=== PATIENT | male | born 1955 | race Caucasian/White ===

== ENCOUNTER → 2018-04-23 | Outpatient (CLI) | payer OTHER ==
[~2018-04-23] MED LIST: ASPI1TAB PO; ATOR40TA75 PO; CLOP75TA2 PO; COMBAER6 INH; CYCL10TA PO; LISI-542 PO; MELO7.5T7 PO; METO50TA7 PO; OMEP20CA3 PO; PRED20TA PO; TRAM50TA2 PO
--- NOTE | 2018-04-23 21:32 | ECHO ---
DATE OF PROCEDURE: 04/23/2018 REFERRING PHYSICIAN: Dr. Jeffrey Hopkins INDICATION: Myocardial infarction. Height 165 cm, weight 84 kg. DIMENSIONS: IVS: 1.1 LV: 5.2 LVPW: 1.1 LA: 3.7 Aorta: 3.5 IVC: 1.5 Mitral E wave velocity: 58 A wave: 87 E prime septal: 5.3 E prime lateral: 5.9 FINDINGS: The study is of rather difficult technical quality with fair visualization. Left ventricle is of normal size and systolic function, I estimate left ventricular ejection fraction (LVEF) around 60-65%. No segmental wall motion abnormalities are noted. Right ventricle is also normal size and systolic function. Both atria appear grossly normal. Aortic, mitral and tricuspid valves appear normal. Pulmonic valve was not visualized. No pericardial effusion is noted. Inferior vena cava is normal size. Aortic root appears normal. Aortic arch and abdominal aorta were not well seen. Doppler interrogation of aortic valve reveals no stenosis and trace insufficiency. There is also trace mitral and trace tricuspid insufficiency. Calculated pulmonary artery pressure is within normal values. Mitral inflow pattern and tissue Doppler imaging of mitral annulus revealed grade 1 diastolic dysfunction. CONCLUSIONS: 1. Study is of fair technical quality. 2. Normal left ventricular (LV) size with normal LV systolic function and grade 1 diastolic dysfunction. 3. Trace aortic, mitral and tricuspid insufficiency. 4. Likely normal central venous pressure and normal pulmonary artery pressure. COMMENT: Subacute bacterial endocarditis (SBE) prophylaxis is not recommended. No obvious wall motion abnormality after reported old myocardial infarction.
== END ==
LOC: M CARPUL 07:33
PROVIDERS: ATTEND Internal Medicine
DX: I08.3 Combined rheumatic disorders of mitral, aortic and tricuspid valves (principal); I25.2 Old myocardial infarction

== ENCOUNTER 2018-07-30 09:39 | Emergency (ER) | payer OTHER ==
[~2018-07-30] VITALS: Ht 165.1 cm; Wt 83.6 kg
[~2018-07-30 09:39] MED LIST changes: -ASPI1TAB PO; +ASPI81TA26 PO
[2018-07-30] MEDS ORDERED: TETRACAINE 0.5% OPHTH SOLN 4ML OS ONE (10:45)
[2018-07-30] MEDS ORDERED: FLUORESCEIN OPHTH 1 MG STRIP OS ONE (10:45)
[2018-07-30] MEDS ORDERED: IRRIGATION OPHTH SOLN (EYE WASH) 120ML OS ONE (11:00)
[2018-07-30] MEDS ORDERED: ERYTHROMYCIN OPHTH OINT OS ONE (11:30)
[2018-07-30] MEDS ORDERED: ERYT1OIN26 OS (11:48)
[2018-07-30 12:04] VITALS: BP 145/86
== END 2018-07-30 12:10 | disposition home or self-care (01) ==
LOC: M ED 09:39
DX: S05.02XA Injury of conjunctiva and corneal abrasion without foreign body, left eye, initial encounter (principal); X58.XXXA Exposure to other specified factors, initial encounter; Y92.89 Other specified places as the place of occurrence of the external cause; I10 Essential (primary) hypertension; J44.9 Chronic obstructive pulmonary disease, unspecified; K21.9 Gastro-esophageal reflux disease without esophagitis; Z95.5 Presence of coronary angioplasty implant and graft; Z79.899 Other long term (current) drug therapy; Z79.82 Long term (current) use of aspirin

== ENCOUNTER → 2019-02-04 | Outpatient (CLI) | payer OTHER ==
[~2019-02-04] MED LIST changes: +ERYT1OIN26 OS; +OMEP-172 PO; -OMEP20CA3 PO
--- NOTE | 2019-02-04 10:51 | PFTRPT ---
Site: [facility], [address] [place] [address], [id number] ID: [id number] Name: MARIBELL TAYLOR Visit Date: 02/04/2019 Second ID: [id number] Referring Doctor: Elliot Soler MD Reviewing Doctor: Elliot Soler MD Glost Placer: Wilma CHAN, JEWEL Age: 63 : 1955 Sex: Male Race: Height: 65.00 Inches Weight: 180.00 Lbs BSA: 1.89 Order IDs: [id number] Requested Test(s): <RESP-PFT.PFT B/A> Diagnosis: J44.9 test appear to be valid, although the ATS standard for "end of test" was not met. Pt was given four puffs of albuterol for postbronchodilator. Review Status: Not Reviewed Pre-Bronch Post-Bronch Pred Actual %Pred Actual %Chng SPIROMETRY FVC (L) 3.85 1.98 51 2.23 12 FEV1 (L) 2.88 1.03 35 1.29 24 FEV1/FVC (%) 75 52 69 58 10 FEF 25% (L/sec) 6.86 1.49 21 2.10 41 FEF 50% (L/sec) 4.53 0.41 9 0.91 121 FEF 75% (L/sec) 1.25 0.19 15 0.28 50 FEF 25-75% (L/sec) 2.35 0.38 16 0.73 91 FEF Max (L/sec) 7.87 3.53 44 3.77 6 FIVC (L) 1.93 2.16 11 FIF 50% (L/sec) 4.63 4.93 106 5.42 9 FIF Max (L/sec) 5.08 5.58 9 MVV (L/min) 119 44 36 Expiratory Time (sec) 8.54 7.31 -14 Back Extrap Vol (L) 0.10 0.08 -22 Time To FEFmax (sec) 0.092 0.081 -11 LUNG VOLUMES SVC (L) 3.96 2.31 58 IC (L) 2.93 1.74 59 ERV (L) 1.03 0.57 55 TGV (L) 3.07 3.47 113 RV (Pleth) (L) 2.04 2.90 142 TLC (Pleth) (L) 6.00 5.21 86 RV/TLC (Pleth) (%) 34 56 163 DIFFUSION DLCOunc (ml/min/mmHg) 25.56 14.51 56 DLCOcor (ml/min/mmHg) 25.56 15.19 59 DL/VA (ml/min/mmHg/L) 4.26 4.60 107 VA (L) 6.00 3.31 55 BHT (sec) 9.79 IVC (L) 2.09 TLC (SB) (L) 3.46 AIRWAYS RESISTANCE Raw (cmH2O/L/s) 1.45 1.74 120 Gaw (L/s/cmH2O) 1.03 0.58 55 sRaw (cmH2O*s) 4.76 6.38 133 sGaw (1/cmH2O*s) 0.20 0.16 78 BLOOD GASES Hgb (gm/dL) 13.1
== END ==
LOC: M CARPUL 10:07
PROVIDERS: ATTEND Internal Medicine Pulmonary Disease
DX: J44.9 Chronic obstructive pulmonary disease, unspecified (principal)

== ENCOUNTER → 2021-07-19 | Outpatient (CLI) | payer OTHER ==
[~2021-07-19] MED LIST changes: +CYCL-707 PO; -CYCL10TA PO; -ERYT1OIN26 OS; +ERYT5OIN25 OS; -LISI-542 PO; +LISI5TAB11 PO; -OMEP-172 PO; +OMEP1CAP73 PO
== END ==
LOC: M RAD 13:10
PROVIDERS: ATTEND Internal Medicine Pulmonary Disease
DX: Z12.2 Encounter for screening for malignant neoplasm of respiratory organs (principal); F17.218 Nicotine dependence, cigarettes, with other nicotine-induced disorders

== ENCOUNTER → 2021-09-05 | Outpatient (CLI) | payer OTHER | LOC: M PLARAD 11:24 | PROVIDERS: ATTEND Internal Medicine Pulmonary Disease | DX: R91.1 Solitary pulmonary nodule (principal) | CPT/HCPCS: 78815; A9552 ==

== ENCOUNTER → 2022-03-16 | Outpatient (CLI) | payer MEDICARE, OTHER | LOC: M PLAIMG 10:20 | PROVIDERS: ATTEND Internal Medicine Pulmonary Disease | DX: R91.8 Other nonspecific abnormal finding of lung field (principal) ==

== ENCOUNTER → 2023-04-16 | Outpatient (CLI) | payer OTHER, MEDICARE | LOC: M RAD 09:16 | PROVIDERS: ATTEND Internal Medicine Pulmonary Disease | DX: Z12.2 Encounter for screening for malignant neoplasm of respiratory organs (principal); F17.218 Nicotine dependence, cigarettes, with other nicotine-induced disorders ==

== ENCOUNTER 2023-07-19 17:06 | Emergency (ER) | payer OTHER, MEDICARE ==
[~2023-07-19] VITALS: Ht 165.1 cm; Wt 75.5 kg
[2023-07-19 18:37] VITALS: BP 169/85; TEMP 99; O2SAT 94
[2023-07-19] MEDS ORDERED: PRED20TA PO (20:14)
[2023-07-19] MEDS ORDERED: SYMB16INH INH (20:16)
[2023-07-19] MEDS ORDERED: CHLO0.124 MT (20:16)
[2023-07-19] MEDS ORDERED: SPIR1CAP INH (20:16)
[2023-07-19] MEDS ORDERED: AMOX875T2 PO (20:16)
[2023-07-19] MEDS: methylPREDNISolone 125MG 2ML VIAL IM ONE (20:31)
[2023-07-19] MEDS: IPRATROPIUM 0.5MG/ALBUTEROL 2.5MG INH SOL UD 3ML (DUONEB) NEB ONE (20:42)
== END 2023-07-19 21:01 | disposition home or self-care (01) ==
LOC: M ED 17:06
DX: J44.1 Chronic obstructive pulmonary disease with (acute) exacerbation (principal); K05.00 Acute gingivitis, plaque induced; I10 Essential (primary) hypertension; F10.10 Alcohol abuse, uncomplicated; I25.2 Old myocardial infarction; Z86.79 Personal history of other diseases of the circulatory system; Z79.52 Long term (current) use of systemic steroids; Z79.2 Long term (current) use of antibiotics; Z79.82 Long term (current) use of aspirin; Z79.811 Long term (current) use of aromatase inhibitors; Z79.899 Other long term (current) drug therapy
CPT/HCPCS: 94640; 96372; 99283; J2919

== ENCOUNTER 2023-08-10 11:37 | Emergency (ER) | payer OTHER ==
[~2023-08-10] VITALS: Ht 177.8 cm; Wt 81.8 kg
[~2023-08-10 11:37] MED LIST changes: +AMOX875T2 PO; +CHLO0.124 MT; +SPIR1CAP INH; +SYMB16INH INH
[2023-08-10 12:17] LABS: BASO # 0.1 10^3/uL (0.0-0.2); BASO % 0.5 % (0.0-1.0); EOS # 0.1 10^3/uL (0.0-0.5); EOS % 0.7 % (0.0-3.0); HEMATOCRIT 41.6 % (42.0-52.0); HEMOGLOBIN 14.3 g/dl (13.5-17.5); LYMPH # 3.1 10^3/uL (1.5-5.0); LYMPH % 30.2 % (24.0-44.0); MEAN CORPUSCULAR HEMOGLOBIN 30.8 pg (27.0-33.0); MEAN CORPUSCULAR HGB CONC 34.4 g/dl (32.0-36.5); MEAN CORPUSCULAR VOLUME 89.7 fl (80.0-96.0); MONO # 0.8 10^3/uL (0.0-0.8); MONO % 7.5 % (2.0-8.0); NEUTROPHILS # 6.2 10^3/uL (1.5-8.5); NEUTROPHILS % 60.9 % (36.0-66.0); PLATELET COUNT, AUTOMATED 246 10^3/uL (150-450); RED BLOOD COUNT 4.64 10^6/uL (4.30-6.10); WHITE BLOOD COUNT 10.2 10^3/uL (4.0-10.0)
[2023-08-10 12:44] LABS: CK-MB VALUE MASS < 1.0 NG/ML (<3.6)
[2023-08-10 12:45] LABS: LIPASE 41 U/L (12-53)
[2023-08-10 12:47] LABS: ALBUMIN 3.5 G/DL (3.2-5.2); ALKALINE PHOSPHATASE 87 U/L (46-116); ALT/SGPT 16 U/L (7.0-40); AST/SGOT 13 U/L (<34); BILIRUBIN,DIRECT 0.2 MG/DL (<0.4); BILIRUBIN,TOTAL 0.7 MG/DL (0.3-1.2); BLOOD UREA NITROGEN 8 MG/DL (9-23); CALCIUM LEVEL 8.9 MG/DL (8.3-10.6); CARBON DIOXIDE LEVEL 24 MMOL/L (20-31); CHLORIDE LEVEL 106 MMOL/L (98-107); CPK CREATINE PHOSPHOKINASE 66 U/L (46-171); CREATININE FOR GFR 0.79 MG/DL (0.70-1.30); GLOMERULAR FILTRATION RATE > 60.0 (>49); GLUCOSE, FASTING 140 MG/DL (74-106); MB/CK RELATIVE INDEX 1.51 (< OR =4); POTASSIUM SERUM 4.2 MMOL/L (3.5-5.1); SODIUM LEVEL 139 MMOL/L (136-145); TOTAL PROTEIN 6.5 G/DL (5.7-8.2)
[2023-08-10 12:49] LABS: FREE T4 1.24 NG/DL (0.89-1.76); THYROID STIMULATING HORMONE 3.735 uIU/ML (0.55-4.78)
[2023-08-10 13:43] LABS: INR 1.08; PARTIAL THROMBOPLASTIN TIME 27.8 SECONDS (24.8-34.2); PROTHROMBIN TIME 13.7 SECONDS (12.5-14.5)
[2023-08-10 14:00] LABS: CK-MB VALUE MASS 1.6 NG/ML (<3.6)
[2023-08-10 14:03] LABS: MB/CK RELATIVE INDEX 2.38 (< OR =4)
[2023-08-10] MEDS ORDERED: ISOVUE-370 76% 100ML VIAL As Ordered ONE (14:13)
[2023-08-10] MEDS ORDERED: HEPARIN SOD (PORCINE) 5000UNITS/ML 1ML VIAL/SYRINGE IV PRN (15:55)
[2023-08-10] MEDS: HEPARIN SOD (PORCINE) 5000UNITS/ML 1ML VIAL/SYRINGE IV ONE (16:21)
[2023-08-10] MEDS: NITROGLYCERIN 2% OINT 1 GM *U/D* PKT TOP ONE (16:22)
[2023-08-10] MEDS: HEPARIN DRIP 25,000 UNITS in IV 1 EA IV SCH (16:25)
[2023-08-10 16:57] VITALS: BP 203/92; TEMP 98.2; O2SAT 96
== END 2023-08-10 16:56 | disposition short-term general hospital (02) ==
LOC: M ED 11:37 → EDBD 11:37 → M ED 16:56
DX: I21.4 Non-ST elevation (NSTEMI) myocardial infarction (principal); I10 Essential (primary) hypertension; E78.5 Hyperlipidemia, unspecified; J44.9 Chronic obstructive pulmonary disease, unspecified; Z86.79 Personal history of other diseases of the circulatory system; Z87.891 Personal history of nicotine dependence; Z79.52 Long term (current) use of systemic steroids; Z79.82 Long term (current) use of aspirin; Z79.811 Long term (current) use of aromatase inhibitors; Z79.899 Other long term (current) drug therapy; R06.02 Shortness of breath
CPT/HCPCS: 71045; 71275; 80048; 80076; 82550; 82553; 83690; 83880; 84439; 84443; 84484; 85025; 85610; 85730; 93005; 93041; 94760; 96365; 99285; Q9967